=== PATIENT | male | born 1940 | race Caucasian/White ===

== ENCOUNTER 2018-11-10 15:42 | Inpatient (IN) | payer MEDICAID ==
[~2018-11-10] VITALS: Ht 177.8 cm; Wt 44.0 kg
[2018-11-10 15:55] VITALS: Ht 177.8 cm; Wt 44.0 kg
--- NOTE | 2018-11-10 16:00 | NUR ---
PT PRESENTS TO THE ED TODAY WITH C/C OF POSSIBLE SYNCOPAL EPISODE. PT WAS FOUND ON THE COUCH "OUT OF IT" BY THE GRANDSON. NO OBVIOUS TRAUMA NOTED. PT HAS PAPER THIN SKIN WITH MULTIPLE BLOTCHES OF ECCHYMOSIS AND SKIN TEARS FROM RECENT FALLS PER FAMILY. PER GRANDSON, PT APPEARS MORE PALE THAN NORMAL. PT'S BROUGHT A NOTERIZED ADVANCED DIRECTIVE STATING THAT PT ONLY WANTED TO BE SEEN BY HIS DOCTOR. PER , IT IS MOSTLY BECAUSE PT DOES NOT WANT A FEEDING TUBE PLACED. PT DOES WISH TO BE TREATED IN THE ER TODAY. PER , ONLY MEDICAL HISTORY IS PALPITATIONS. PT IS AWAKE AND ALERT, RESP E/U, SPEAKING IN FULL CLEAR SENTENCES, NAD NOTED. AWAITING MSE.
--- NOTE | 2018-11-10 17:04 | NUR ---
PT TAKEN TO CT VIA HUNG GROSS NOTED.
[2018-11-10 17:16] LABS: BASOPHIL % 0.3 % (0-2); PLATELET COUNT 156 x10^3mcL (130-400)
[2018-11-10 17:19] LABS: RED CELL DISTRIBUTION WIDTH 14.7 % (11.5-14.5)
[2018-11-10 17:30] LABS: CALCIUM 8.4 mg/dL (8.5-10.1); CHLORIDE SERUM 104 mmol/L (98-107); GLUCOSE SERUM 112 mg/dL (74-106); POTASSIUM SERUM 4.4 mmol/L (3.5-5.1); SODIUM SERUM 139 mmol/L (136-145)
[2018-11-10 17:43] LABS: ALBUMIN 3.4 g/dL (3.4-5.0); ALKALINE PHOSPHATASE 62 U/L (46-116); ALT/SGPT 15 U/L (16-63); AST/SGOT 21 U/L (15-37); BILIRUBIN TOTAL 0.74 mg/dL (0.20-1.00); HDL CHOLESTEROL 57 mg/dL (40-60); LIPASE 270 IU/L (73-393); MAGNESIUM 2.3 mg/dL (1.8-2.4); T4(THYROXINE) 6.7 ug/dL (4.7-13.3); TOTAL PROTEIN, SERUM 6.9 g/dL (6.4-8.2)
[2018-11-10 17:45] LABS: CHOLESTEROL 227 mg/dL (<200)
--- NOTE | 2018-11-10 18:10 | NUR ---
PT SITTING UP IN GURNEY, AWAKE AND ALERT, RESP E/U, PROVIDED WITH MORE WARM BLANKETS. AT BEDSIDE. NAD NOTED. PT AWARE OF NEED FOR URINE SAMPLE. URINAL PROVIDED AT BEDSIDE. REPORTS THAT HE IS UNABLE TO PROVIDE AT THIS TIME.
--- NOTE | 2018-11-10 18:51 | NUR ---
PT TAKEN TO XRAY VIA HUNG GROSS NOTED.
--- NOTE | 2018-11-10 19:06 | NUR ---
REPORT GIVEN TO TEX TO ASSUME CARE FOR PT.
[2018-11-10 19:15] LABS: microscopic required? NO
--- NOTE | 2018-11-10 19:15 | NUR ---
REPORT RECEIVED FROM NATALIE URRUTIA
[2018-11-10 19:27] LABS: urine erythrocyte NEGATIVE (NEGATIVE)
--- NOTE | 2018-11-10 19:30 | NUR ---
PT. LAYING IN BED, AAOX4, NO ACUTE DISTRESS NOTED, DENIES PAIN AT THIS TIME, REPOSITIONED FOR COMFORT, FAMILY AT BEDSIDE, WILL MONITOR, PENDING RESULTS
[2018-11-10 19:37] LABS: AMPHETAMINE QUAL UR NONE DETECTED (See below)
[2018-11-10] MEDS ORDERED: BISOPROLOL FUMAR5 MG PO (21:14)
[2018-11-10] MEDS ORDERED: MELATONIN3 MG PO (21:15)
--- NOTE | 2018-11-10 21:15 | NUR ---
INSTRUCTED PT. TO TURN OVER TO ASSES SKIN ON BUTTOCKS AREA, PT. REFUSED AT THIS TIME, PT. STATES HE DOES NOT HAVE ANY OPEN WOUNDS
--- NOTE | 2018-11-10 22:16 | NUR ---
REPORT GIVEN TO MOE URRUTIA TELE
--- NOTE | 2018-11-10 22:21 | NUR ---
REPORTED TO SHAWM PER PT. AND FAMILY, NO OPEN WOUNDS JUST REDNESS, PT. REFUSED TO TURN TO ASSESS BUTTOCKS AREA
--- NOTE | 2018-11-10 23:15 | NUR ---
RECEIVED FROM ED,PUT IN ROOM 243 B AND MADE COMFORTABLE.ACCOMPANIED BY /FAMILY.TELE 22 ASSIGNED,REPORT FROM ED,SINUS THIAGO.MAINLY KAZAKH,CHANTELL WILL ADMIT PATIENT.THANKS.CALL LIGHT IN REACH.
[2018-11-10 23:53] VITALS: BP 135/62
--- NOTE | 2018-11-11 00:12 | NUR ---
RECEIVED PT FROM ER, PT ADMIT FOR SB, DISLOCATED HIP. PT IS A/O X4, VERBAL RESPONSIVE, LUNG SOUND CLEAR BILATERAL, NO COUGH, NO SOB, PT IS ON TELE 22, SB, HR 45-49, DENY ANY CHEST PAIN OR DISCOMFORT, BOWLE SOUND PRESENT ALL 4 QUADRANTS, NO DISTENTION, NO TENDER. PEDAL PULSE PRESENT BOTH FEET, RIGHT LEG SHORT THAN LET LEG. PT C/O RIGHT HIP PAIN ONLY WHEN MOVED. THERE ARE ECCHYMOSIS CANDY ARM, LACERATION AT RIGHT FA, CDI, NONBLANCHABLE ERYTHEMA AT COCCYX AREA. LEFT SHOULDER ABARSION CDI, IV AT LEFT AC, NO LEAKING, NO INFITLRATION ALL ADLS ASSIST, ALL NEED MET, CALL LIGHT IN REACH, WILL CONTINUE TO MONITOR.
--- NOTE | 2018-11-11 00:39 | NUR ---
DR LEE TALKING TO PATIENT AND ,MAINLY ARMENIAN,PHOTOGRAPHIC COLORIST USE.CANDY ARM ECCHYMOSIS,L SHOULDER ABRASION,RFA LACERATION WITH DRESSING FROM ER,ER DID NOT TAKE PICTURE,GOT TO OPEN IT HERE/FLOOR.COCCYX HAS NONBLANCHABLE REDNESS,ALL PICTURES TAKEN UPON ARRIVAL TO FLOOR.USES CRUTCH AT HOME,R LEG SHORTER THAN LEFT LEG,HAS R HIP DISLOCATION.DR DESIR ORTHO CONSULT NOW.TELE 22 SB,EKG FROM ER,SB.NO CHEST PAIN. STAYING FOR TONIGHT.CALL LIGHT IN REACH.
--- NOTE | 2018-11-11 02:18 | NUR ---
NEW ORDER IVF D5NS AT 70 CC/ HOUR.IV SITE LAC,EXTENSION YTUBING APLLIED FOR EASIER HANDLING BOTH PATIENT AND NURSE.FLUSHES EASILY.ALSO NOW ON HEPARIN SQ -21 SQ BID.
--- NOTE | 2018-11-11 02:26 | NUR ---
ORTHOSTATIC VITAL SIGNS,ENTERED,WASHER REPAIRMAN MADE AWARE.
[2018-11-11 04:46] VITALS: BP 108/58
--- NOTE | 2018-11-11 05:19 | NUR ---
I AND O MEASURED.NO DISTRESS THI SHIFT,NS AT 70 CC/ HOUR. AT BEDSIDE.CALL LIGHT IN REACH.
--- NOTE | 2018-11-11 05:27 | NUR ---
ORTHOSTATIC VITAL SIGNS WILL DO AT THIS TIME.
--- NOTE | 2018-11-11 05:39 | NUR ---
UNABLE TO DO STANDING ORTHOSTATIC,PATIENT CANNOT STAND.
--- NOTE | 2018-11-11 06:23 | NUR ---
PATIENT HEART RATE DOWN TO 35,NO SYMPTOMS PRESENTED,DR RENEE MADE AWARE.CHARGE NURSE AWARE.
[2018-11-11 06:57] LABS: BASOPHIL % 0.2 % (0-2)
[2018-11-11 07:16] LABS: CALCIUM 7.4 mg/dL (8.5-10.1); CHLORIDE SERUM 107 mmol/L (98-107); CREATININE SERUM 0.8 mg/dL (0.7-1.3); GLUCOSE SERUM 83 mg/dL (74-106); MAGNESIUM 2.5 mg/dL (1.8-2.4); PHOSPHOROUS 3.1 mg/dL (2.5-4.9); SODIUM SERUM 140 mmol/L (136-145)
[2018-11-11 07:25] LABS: PLATELET COUNT 129 x10^3mcL (130-400); RED CELL DISTRIBUTION WIDTH 14.7 % (11.5-14.5)
[2018-11-11 08:00] VITALS: BP 94/54
[2018-11-11 11:49] VITALS: BP 102/52
--- NOTE | 2018-11-11 12:50 | NUR ---
PT WAS SEEN FOR DYSPHAGIA. PT WAS ABLE SAFELY SWALLOW PUREE DIET WITH THIN LIQUID. PT HAD MILD DIFFICULTY WITH MASTICATION SKILLS FOR MS DIET. RECOMMENDATION PUREE DIET WITH THIN LIQUID SMALL BITES AND SIPS ONLY.
--- NOTE | 2018-11-11 14:48 | NUR ---
I SPOKE TO THE PATIENT'S FAMILY WHO EXPRESSED CONCERN OVER X-RAY ORDER. I ALSO SPOKE TO X-RAY DEPT WHO ALSO EXPRESSED CONCERNS ABOUT THE PATIENTS ABILITY TO TOLERATE THE PROCEDURE. PATIENT HAS A PT EVAL ORDERED FOR TOMORROW MORNING, X-RAY DEPT WOULD PREFER TO COMPLETE PROCEDURE AFTER PHYSICAL THERAPY HAS EVALUATED THE PATIENTS MOBILITY. I SPOKE TO PT WHO IS SCHEDULED TO SEE THE PATIENT TOMORROW MORNING AT 0900. I SPOKE TO THE PATIENT AND HIS WHO PREFERED TO SEE PHYSICAL THERAPY PRIOR TO X-RAY. I CALLED DR. GLORIA, HE DID NOT ANSWER, LMOM, AND I PAGED DR. LORENZO TO INFORM OF PATIENTS WISHES. WILL CONTINUE TO MONITOR.
--- NOTE | 2018-11-11 15:13 | NUR ---
Discount pharmacy card and list to low cost medical clinics given to patient by Myrna.
[2018-11-11 16:29] VITALS: BP 92/50
--- NOTE | 2018-11-11 19:20 | NUR ---
REPORT GIVEN TO SALES OFFICER NURSE AT THE BEDSIDE, CARE ENDORSED.
--- NOTE | 2018-11-11 19:25 | NUR ---
RECIEVED PT IN NO ACUTE DISTRESS. AWAKE/ALERT. AZERI/PORTUGESE SPEAKING ONLY. TELE #22, SB WITH 1ST AVB. HR 39. BREATHING E/U ON RA. R HIP DISLOCATION, DENIES PAIN. DRESSING TO RFA, CDI. NON-BLANCHABLE REDNESS TO COCCYX. IV TO LAC, PATENT. BED IN LOWEST POSITION, 2 SIDE RAILS UP, CALL LIGHT IN REACH. INSTRUCTED TO CALL FOR ASSISTANCE.
[2018-11-11 20:36] VITALS: BP 99/51
--- NOTE | 2018-11-12 02:08 | NUR ---
RESTING WITH EYES CLOSED. BREATHING E/U. NO ACUTE DISTRESS NOTED. AT BEDSIDE. WILL CONTINUE TO MONITOR.
[2018-11-12 04:37] VITALS: BP 112/52
[2018-11-12 06:41] LABS: BASOPHIL % 0.3 % (0-2)
[2018-11-12 06:48] LABS: CALCIUM 7.4 mg/dL (8.5-10.1); CARBON DIOXIDE 28.6 mmol/L (21-32); CHLORIDE SERUM 107 mmol/L (98-107); CREATININE SERUM 0.7 mg/dL (0.7-1.3); GLUCOSE SERUM 79 mg/dL (74-106); PHOSPHOROUS 2.7 mg/dL (2.5-4.9); POTASSIUM SERUM 3.7 mmol/L (3.5-5.1); SODIUM SERUM 141 mmol/L (136-145)
[2018-11-12 06:51] LABS: PLATELET COUNT 117 x10^3mcL (130-400); RED CELL DISTRIBUTION WIDTH 14.9 % (11.5-14.5)
--- NOTE | 2018-11-12 07:05 | NUR ---
PT IS LAYING DOWN IN BED WITH HOB UP. PT LOOKS TO BE IN NO ACUTE DISTRESS AT THIS TIME AND DENIES ANY PAIN. IV SITE PATENT WITH NO SIGNS OF ERYTHEMA OR SWELLING WITH IV FLUIDS INFUSING. RESPIRATIONS EVEN AND UNLABORED ON ROOM AIR. TELE MONITOR 22 PRESENT. CALL LIGHT WITHIN REACH. WILL CONTINUE TO MONITOR.
--- NOTE | 2018-11-12 07:13 | NUR ---
NO ACUTE DISTRESS NOTED. NO ACUTE CHANGES. NPO SINCE MIDNIGHT. WILL ENDORSE TO ONCOMING RN.
[2018-11-12 09:19] VITALS: BP 119/56
--- NOTE | 2018-11-12 10:00 | NUR ---
PT REQUESTING TO HAVE A BATH AND ALL NEW CLEAN SHEETS, BED BATH PREFORMED AND NEW SHEETS AND GOWN PROVIDED. NEW PATCHES APPLIED TO CHEST FOR TELE MONITOR. PT SEEMED TO BE AGITATED DURING THE BATH, FAMILY MEMBER STATED THAT BED DID NOT WANT A BED BATH WITH THE TELE MONITOR OR IV SITE. REMOVED TELE WHEN WIPING DOWN CHEST BUT INFORMED PT AND FAMILY MEMBER THAT UNABLE TO REMOVED IV DURING BED BATH. PT MADE COMFORTABLE IN BED. REPOSITIONED PT AND PLACED PILLOW UNDER HEELS TO PREVENT SKIN BREAKDOWN. TELE MONITOR REAPPLIED. CALL LIGHT WITHIN REACH. FAMILY MEMBER AT BEDSIDE. WILL CONTINUE TO MONITOR.
--- NOTE | 2018-11-12 11:30 | NUR ---
PT HEARTRATE TRENDING IN 40S. DR. VALDOVINOS AND RESIDENT AWARE
--- NOTE | 2018-11-12 12:25 | NUR ---
Initial Nutrition Assessment: 243T/B TRISTEN ACEVEDO IA HR Dx: Sinus bradycardia, dislocated hip PMHx: HTN, osteoarthritis PSHx: HTN, osteoarthritis Labs: BUN 21H, CA 7.4L, WBC 2.8L, HGB 9.2L Meds: Colace, D 5%, norco, Zofran, heparin Diet: Puree PO intake since admission: (11/11) dinner 50%, lunch 70%, Ht: 177.8 cm (70") Wt: 44 kg (97#) BMI: 13.9 kg/m2 (underweight) Bed scale: 44 kg IBW: 166# (75 kg) %IBW: 58 UBW: 147# Age: 78/M Food Allergies: NKFA Skin: ecchymosis BUE, non-blanchable redness to coccyx Thom: 13 Edema: none GI: Last BM: 11/10 Trigger: unintentional wt loss, poor PO >3d, appears underweight/malnourished Pt is a 78 yo male with PMH of HTN, osteoarthritis who was BIBA from home after he felt a fall. RD Note (11/12): FNS received consult for 'severe PCM' on 11/11. Per bed huddles, there might likely be esophageal CA per Dr. Jose. Per consultation note by Dr. Fonseca, pt has dysphagia and a reported 50 pound weight loss over the past one year. Per swallow eval (11/11) pt can tolerate puree diet with thin liquids. Patient appeared extremely emaciated with temporal wasting. Per patient's , patient is always losing weight as he does not eat much. Patient's also mentioned that patient gets diarrhea with Ensure and has difficulty tolerating it. Discussed the patient's case with Dr. Norris while he was rounding and talking with this patient. Problem with: N/V/D/C: none Problems with: Chewing: Swallowing: yes Current appetite: poor Recent wt change: lost 50# x 1 year %wt change: -34% (significant) Vitamin/Supplement use: none Special diet at home: Regular Physical activity: sedentary Nutrition education given: none at this time. PO was encouraged. Food-drug interactions: Colace: high fiber w/ 1358-6619 ml fluid/day Education given: n/a Estimated Nutritional Needs Based on current body weight (44 kg) Energy: 5604-7920 kcal/day (35-40 kcal/kg for weight gain) Protein: 53-62 g/day (1.2-1.4 g/kg for malnutrition) Fluid: 5166-8076 mL/day (1 mL/kcal) Nutrition Diagnosis: 1. Severe malnutrition related to chronic poor PO as evidenced by temporal wasting, BMI 13.9 kg/m2. Intervention 1. Recommend continuing puree diet with thin liquids at this time. Discussed patient with attending Dr. Norris. Monitor/Evaluate Goal: PO intake at least 75% of estimated needs Monitor: PO intake, Labs, GI function F/U in 2-3 days as high risk 11/14-
--- NOTE | 2018-11-12 12:25 | NUR ---
1. Recommend continuing puree diet with thin liquids at this time. Discussed patient with attending Dr. Norris.
--- NOTE | 2018-11-12 12:38 | NUR ---
TELE MONITOR REMOVED AND ORDERED AND RETURNED TO TELE STATION. PT IS SITTING UP IN BED EATING. FAMILY MEMBER IS ASSISTING PT WITH EATING. PT LOOKS TO HAVE NO DIFFICULTY SWALLOWING PUREE DIET. PT LOOKS TO BE IN NO ACUTE DISTRESS. PT REQUESTING TO HAVE PILLOW REMOVED UNDER BACK AND RETURNED AFTER DONE WITH EATING. FMAILY MEMBERS AT BEDSIDE. WILL CONTINUE TO MONITOR.
[2018-11-12 12:54] VITALS: BP 128/58
--- NOTE | 2018-11-12 14:30 | NUR ---
PT FAMILY MEMBER REQUESTING TO SPEAK TO A LAWNMOWER MECHANIC ABOUT OPTIONS WHEN PT IS BEING DISCHARGED AND WHAT IS COVERED UNDER THEIR INSURANCE. INFORMED CASE MANAGEMENT. LAWNMOWER MECHANIC CAME AND SPOKE WITH PT AND FAMILY.
--- NOTE | 2018-11-12 15:42 | NUR ---
WOUND CARE EVALUATION: SKIN TEAR LINER SHAPE 3CM IN LENGTH,LFA GRACIA WOUND WITH ECCHYMOSIS,THIN AND FRAGEL, WOUND IS CLEAN NO S/S OF INFECTION. WOUND CLEAN WITH NS, PAT DRY , STERIL STRIPS APPLY AND COVER WITH ISLAND DRESSING CHANGE DRESSING PRN IF SOILING. MAD TO BUTTOCKS, BLANCHABLE REDNESS 5X5 CM,PIN POINTS EROSION, OPTIFOAM IN PLACE DCI. PLEASE APPLY HYDRAGUARD TO BILATERAL UPPER EXTREMITIES BID AND NATURAL GAS SHOTHOLE DRILLER PRIMARY RN NOTIFIED OF ABOVE INSTRUCTIONS
--- NOTE | 2018-11-12 17:45 | NUR ---
ATTEMPTING TO ASSIST PT WITH EATING. PT STATES THAT HE IS NOT HUNGRY BUT WHEN ASKING PT IF HE IS HUNGRY THEN HE SAYS YES. ASKED PT WHAT FOOD HE WANTS AND STATES HE DOES NOT KNOW. ACCORDION MAKER ASSISTING WITH PT FEEDING, PT CONTINUES TO CONTRADICT HIMSELF WITH WHETHER HE WANTS TO EAT OR NOT. PT ATE SOME OF DINNER, WILL CONTINUE TO ASSIST PT WITH EATING. CALL LIGHT WITHIN REACH. WILL CONTINUE TO MONITOR.
[2018-11-12 18:09] VITALS: BP 145/65
--- NOTE | 2018-11-12 18:33 | NUR ---
PT IS LAYING DOWN IN BED WITH HOB UP. PT LOOKS TO BE IN NO ACUTE DISTRESS AT THIS TIME AND DENIES ANY PAIN. RESPIRATIONS EVEN AND UNLABORED ON ROOM AIR. IV SITE PATENT WITH NO SIGNS OF ERYTHEMA OR SWELLING WITH IV FLUIDS INFUSING. BED IN LOWEST POSITION, CALL LIGHT WITHIN REACH. WILL ENDORSE TO ONCOMING SHIFT.
[2018-11-12 19:40] VITALS: BP 126/60
--- NOTE | 2018-11-12 20:48 | NUR ---
INFORMED DR. LORENZO PT ASKING FOR SLEEPING PILL TO HELP HIM SLEEP TONIGHT
--- NOTE | 2018-11-12 22:37 | NUR ---
LATE ENTRY: 2000H - AWAKE AND ALERT, HOB ELEVATED 40 DEG. BREATHING EVEN AND UNLABORED ON ROOM AIR. LUNG SOUNDS DIMINISHED, ABLE TO COMPLETE SENTENCES WITHOUT DIFFICULTY. NEEDS ASSISTANCE TO REPOSITION. EXPLAINED TO PT USING HELP WITH MULTI CARE TECHNICIAN THE NEED TO TURN AND REPOSITION FREQUENTLY TO PREVENT BED SORES. PT AGREED TO PLAN OF CARE. IVF OF D5NS AT 70ML/HR INFUSING TO LEFT AC. ELEVATED FEET ON PILLOWS. CALL LIGHT WITHIN EASY REACH. DRESSING TO RIGHT FOREARM AND SACRUM CLEAN AND INTACT.
--- NOTE | 2018-11-12 23:22 | NUR ---
EYES CLOSED, BREATHING EVEN AND UNLABORED ON ROOM AIR. HOB ELEVATED 30 DEG. CALL LIGHT WITHIN EASY REACH.
--- NOTE | 2018-11-13 02:20 | NUR ---
EYES CLOSED, BREATHING UNLABORED. HOB KEPT ELEVATED 30 DEG. CALL LIGHT WITHIN EASY REACH.
--- NOTE | 2018-11-13 04:28 | NUR ---
EYES CLOSED, BREATHING EVEN AND UNLABORED. HOB ELEVATED 30DEG. CALL LIGHT WITHIN EASY REACH.
[2018-11-13 06:10] VITALS: BP 139/68
[2018-11-13 06:18] LABS: BASOPHIL % 0.1 % (0-2)
[2018-11-13 06:41] LABS: CALCIUM 7.8 mg/dL (8.5-10.1); CARBON DIOXIDE 28.2 mmol/L (21-32); CHLORIDE SERUM 106 mmol/L (98-107); CREATININE SERUM 0.7 mg/dL (0.7-1.3); GLUCOSE SERUM 81 mg/dL (74-106); MAGNESIUM 2.2 mg/dL (1.8-2.4); PHOSPHOROUS 2.8 mg/dL (2.5-4.9); POTASSIUM SERUM 3.7 mmol/L (3.5-5.1); SODIUM SERUM 140 mmol/L (136-145)
--- NOTE | 2018-11-13 06:46 | NUR ---
SLEPT THROUGH MOST OF SHIFT. BREATHING EVEN AND UNLABORED ON ROOM AIR. CALL LIGHT WITHIN EASY REACH. IVF INFUSING WELL.
[2018-11-13 06:57] LABS: PLATELET COUNT 116 x10^3mcL (130-400); RED CELL DISTRIBUTION WIDTH 14.7 % (11.5-14.5)
--- NOTE | 2018-11-13 07:10 | NUR ---
RECEIVED REPORT FROM KIRILL RN AT BEDSIDE, PT IN BED IN NO ACUTE DISTRESS
--- NOTE | 2018-11-13 07:15 | NUR ---
AWAKE AND ALERT, STATED SLEPT WELL. IN NO ACUTE DISTRESS. ENDORSED TO NURSE THI
--- NOTE | 2018-11-13 07:30 | NUR ---
PT IN BED, VERBAL, AX OX3, SOMALI, ABLE TO MAKE NEEDS KNOWN, CALM AND COPPERATIVE, PERRLA, CACHIL [place], NO REDNESS/DRAINAGE, NO FACIAL DROOP/SLURRED SPEECH, DENIED PAIN/CP/PALPITATION, DENIED N/V/D, RESP EVEN, NO SOB/COUGH, RA, LUNG DIM BL, CHEST RISE SYMMETRICALLY, MEDSURG, ABD FLAT AND NONTENDER TO TOUCH, BS ACTIVE X 4, INCONTINENT AT TIMES, SKIN C/D/W, IV PATENT AND INFUSING WELL, DRESSING CDI, PALP PULSES, CAP REFILL < 3S, SEE SKIN ASSESSMENT, ALL NEEDS ADDRESSED AT THIS TIME, SAFETY PROTOCOL FOLLOWED, CONTINUE TO MONITOR
--- NOTE | 2018-11-13 09:23 | NUR ---
AM MED GIVEN PER MD ORDER VIA EMAR, TOLERATED WELL, EDUCATED R/T MED, ASE, AND MONITOR GIVEN TO PT, VERBALLY UNDERSTANDING, PT IN BED IN NO ACUTE DISTRESS, CONTINUE TO MONITOR
[2018-11-13 09:34] VITALS: BP 136/68
--- NOTE | 2018-11-13 10:03 | NUR ---
PT SEEN BY DR GLORIA, DR GLORIA DISCUSSED CASE W/ PT AND , NNO AT THIS TIME, PT IN BED IN NO ACUTE DISTRESS, CONTINUE TO MONITOR
--- NOTE | 2018-11-13 10:58 | NUR ---
DR TOMAS DISCUSSED W/ AND PT, PT AND AGREED TO HAVE HOSPICE EVAL AT THIS TIME, SUPERVISING EDITOR TRAILER PAGED AND LEFT MESSAGE, CONTINUE TO MONITOR
--- NOTE | 2018-11-13 11:13 | NUR ---
ALTERNATIVE EDUCATION TEACHER PATSY CALLED BACK AND CONFIRMED HOSPICE AGGREMENT OF PT AND PER ORDER, SAID WILL TALK TO PT AND FOR ARRANGEMENT, PT IN BED IN NO ACUTE DISTRESS
--- NOTE | 2018-11-13 15:14 | NUR ---
PHYSICAL THERAPY DAILY NOTES CO-SIGN All documentation done by the Port Traffic Manager for 11/13/18 has been reviewed. I agree with the documentation. Reviewed/Co-Signed by: Alaina Gaxiola PT Documentation Done by:KARLIE ZAYAS PTA
--- NOTE | 2018-11-13 17:29 | NUR ---
PT IN BED, IN NO ACUTE DISTRESS, VERBAL, HONDURAN, ABLE TO MAKE NEEDS KNOWN, DENIED CP/PALPITATION, DENIED N/V/D, NO FACIAL DROOP/SLURRED SPEECH, IV PATENT AND INFUSING WELL, FAMILY AT BEDSIDE, ALL NEEDS ADDRESSED AT THIS TIME, SAFETY PROTOCOL FOLLOWED, WILL ENDORSE TO ONCOMING RN
[2018-11-13 17:35] VITALS: BP 120/60
--- NOTE | 2018-11-13 19:33 | NUR ---
SHIFT REASSESSMENT DONE.PATIENT ALERT.QUIET.MAINLY ROMANSH,NEEDS ANTICIPATED.BREATHING EASY,HOB 35 DEGREE.FALL PRECAUTION.IVF D5NS AT 70 CC/ HOUR.MEDSURG PATIENT.ALL ECCHYMOSIS BUE,RFA LACERATION AND NONBLANCHABLE REDNESS COCCYX.HEPARIN SQ.VOIDING,GETS INCONTINENT ALSO.CALL LIGHT IN REACH.
--- NOTE | 2018-11-13 21:13 | NUR ---
PM MEDS GIVEN,SWALLOWS WELL.PATIENT GETS INCONTINENT,H=GOOD SKIN CARE PROVIDED,ALL ARMS ECCHYMOSIS NOTED ON ADMIT.
[2018-11-13 21:15] VITALS: BP 136/76
--- NOTE | 2018-11-14 03:07 | NUR ---
INCONTINENT OF BM,KEEP CLEAN AND DRY.GOOD SKIN CARE PROVIDED.
[2018-11-14 05:32] VITALS: BP 141/68
--- NOTE | 2018-11-14 05:59 | NUR ---
I AND O MEASURED.D5NS AT 70 CC/ HOUR.MAINLY GREENLANDIC.NEEDS ANTICIPATED.WILL ENDORSE TO NEXT SHIFT.
[2018-11-14 06:33] LABS: BASOPHIL % 0.3 % (0-2)
[2018-11-14 06:36] LABS: CALCIUM 7.3 mg/dL (8.5-10.1); CARBON DIOXIDE 30.9 mmol/L (21-32); CHLORIDE SERUM 106 mmol/L (98-107); CREATININE SERUM 0.7 mg/dL (0.7-1.3); GLUCOSE SERUM 78 mg/dL (74-106); MAGNESIUM 1.8 mg/dL (1.8-2.4); PHOSPHOROUS 2.1 mg/dL (2.5-4.9); POTASSIUM SERUM 3.6 mmol/L (3.5-5.1); SODIUM SERUM 141 mmol/L (136-145)
[2018-11-14 07:00] LABS: PLATELET COUNT 119 x10^3mcL (130-400); RED CELL DISTRIBUTION WIDTH 14.9 % (11.5-14.5)
--- NOTE | 2018-11-14 07:10 | NUR ---
RECEIVED REPORT FROM PIYUSH RN AT BEDSIDE, PT IN BED IN NO ACUTE DISTRESS
--- NOTE | 2018-11-14 07:29 | NUR ---
PT IN BED, VERBAL, AXOX3, CONFUSED AT TIME, SALVADOREAN, ABLE TO MAKE NEEDS KNOWN, CALM AND COPPERATIVE, PERRLA, [place], NO REDNESS/DRAINAGE, NO FACIAL DROOP/SLURRED SPEECH, DENIED PAIN/CP/PALPITATION, DENIED N/V/D, RESP EVEN, NO SOB/COUGH, RA, LUNG DIM BL, CHEST RISE SYMMETRICALLY, MEDSURG, ABD FLAT AND NONTENDER TO TOUCH, BS ACTIVE X 4, LAST BM THIS AM, SOFT PER REPORT, PUREED, INCONTINENT AT TIMES, SKIN C/D/W, IV PATENT AND INFUSING WELL, DRESSING CDI, PALP PULSES, CAP REFILL < 3S, SEE SKIN ASSESSMENT, TURN Q2H, AT BEDSIDE, ALL NEEDS ADDRESSED AT THIS TIME, SAFETY PROTOCOL FOLLOWED, CONTINUE TO MONITOR
[2018-11-14 08:29] VITALS: BP 145/82
--- NOTE | 2018-11-14 09:24 | NUR ---
PT IN BED, IN NO ACUTE DISTRESS, AM MED GIVEN PER MD ORDER VIA EMAR, TOLERATED WELL, NO ASE NOTED AT THIS TIME, CONTINUE TO MONITOR
[2018-11-14] MEDS ORDERED: COLACE100 MG PO (10:21)
[2018-11-14] MEDS ORDERED: AMBIEN5 MG PO (10:21)
[2018-11-14 10:39] VITALS: BP 145/82
--- NOTE | 2018-11-14 10:43 | NUR ---
NEW ORDER TO D/C HOME W/ HOSPICE EVAL, PATSY SMITH CONTACTED AND MADE AWARE, PER PATSY, WILL HAVE HOSPICE COME TO PT HOUSE TO EVAL AFTER DC HOME, PT AND FAMILY MADE AWARE, CHARGE NURSE WENDY MADE AWARE
--- NOTE | 2018-11-14 11:44 | NUR ---
PATSY SMITH CALLED AND NOTIFY HOSPICE WILL ARRANGE TRANSPORTATION, PT MADE AWARE, PT IN BED IN NO ACUTE DISTRESS, DC SKIN PIC TAKEN AND KEPT IN CHART
--- NOTE | 2018-11-14 13:39 | NUR ---
DC PAPER SIGNED BY , QUESTIONS AKSED AND ANSWERED, NO FURTHER CONCERNS NEEDED WHEN ASKED, MADE AWARE THAT HOSPICE WILL ARRANGE TRANSPORTATION AND WILL P/U PT AT 430PM TO HOME, IV REMOVED, IV CATH TIP INTACT, NO ACTIVE BLEEDING NOTED, PT RESTING IN BED IN NO ACUTE DISTRESS
--- NOTE | 2018-11-14 16:43 | NUR ---
PT DC FROM HOSPITAL VIA GURNEY ACCOMPANIED BY 2 carton stamper, FOLLOWED PT VIA PERSONAL VEHICLE, PT LEFT IN NO ACUTE DISTRESS. HOSPICE NURSE SAID WILL COME TO PT HOUSE TO EVAL PT FOR HOSPICE.
== END 2018-11-14 16:55 | disposition hospice, home (50) | DRG 349 ==
LOC: ED 15:42 → DU 21:35 → MU 11-12 17:29
PROVIDERS: Emergency Medicine; Internal Medicine; ADMIT General Practice
PROC: 0HQDXZZ Repair Right Lower Arm Skin, External Approach (ICD-10-PCS; principal; 2018-11-10)
DX: T84.020A Dislocation of internal right hip prosthesis, initial encounter (principal); E43 Unspecified severe protein-calorie malnutrition; I49.5 Sick sinus syndrome; R64 Cachexia; R13.10 Dysphagia, unspecified; D64.9 Anemia, unspecified; S51.811A Laceration without foreign body of right forearm, initial encounter; M62.50 Muscle wasting and atrophy, not elsewhere classified, unspecified site; S50.11XA Contusion of right forearm, initial encounter; S50.12XA Contusion of left forearm, initial encounter; W18.39XA Other fall on same level, initial encounter; Z91.81 History of falling; Y93.89 Activity, other specified; Y92.018 Other place in single-family (private) house as the place of occurrence of the external cause; Z68.20 Body mass index [BMI] 20.0-20.9, adult; Z87.891 Personal history of nicotine dependence
CPT/HCPCS: 82962; 90715; 97110-GP; 97116-GP; 97530-GP; G0378; G0480; J1644; J3490; J7042; Q0092